=== PATIENT | female | born 1995 | race Caucasian/White ===

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

== ENCOUNTER 2017-03-07 21:41 | Emergency (ER) | payer OTHER, SELFPAY ==
[2017-03-07 21:58] VITALS: O2SAT 99
[2017-03-07] MEDS ORDERED: Adacel Vial IM ONE ×2 (22:16→22:38)
[2017-03-07] MEDS ORDERED: Augmentin 875-125 Tablet PO ONE (22:16)
[2017-03-07] MEDS ORDERED: MOTRIN 600 MG PO ONE (22:17)
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
[2017-03-07] MEDS ORDERED: MOTRIN 600 MG ONE (22:37)
[2017-03-07] MEDS ORDERED: Bacitracin EYE OINT ONE (22:37)
[2017-03-07] MEDS ORDERED: Augmentin 875-125 Tablet ONE (22:37)
[2017-03-07] MEDS: Bacitracin EYE OINT OP SCH ×2 (22:44→22:48)
[2017-03-07 22:59] VITALS: BP 110/78; PULSE 68
== END 2017-03-07 23:09 | disposition home or self-care (01) ==
LOC: ED 21:41
DX: S00.81XA Abrasion of other part of head, initial encounter (principal); Y04.0XXA Assault by unarmed brawl or fight, initial encounter; Y93.F9 Activity, other caregiving; Y92.099 Unspecified place in other non-institutional residence as the place of occurrence of the external cause
CPT/HCPCS: 90471; 90715; 99282; A9270-GY